=== PATIENT | male | born 1965 | race Caucasian/White ===

== ENCOUNTER 2021-08-11 08:40 | Outpatient (CLI) | payer MEDICARE, SELFPAY ==
--- NOTE | ~2021-08-11 | CT_ITS ---
EXAMINATION: CT abdomen pelvis w con INDICATION: Lower abdominal cramping, history of ulcerative colitis TECHNIQUE: Computed tomographic images of the abdomen and pelvis were obtained after the administrati on of 100 cc of Omnipaque 300 intravenous contrast. The dose-length product (DLP) was 1656.74 mGy-cm. Automated exposure control and iterative reconstruction technique were employed. COMPARISON: None available FINDINGS: Minimal dependent atelectasis is present in the lung bases. The heart size is normal. There is a 1.8 x 1.0 cm hypervascular lesion in liver segment IVb. There is focal fatty infiltration of th e liver near the ligamentum teres. The spleen, pancreas, gallbladder, and adrenal glands are normal. The kidneys are unremarkable. No pathologically enlarged abdominal or pelvic lymph nodes are identifi ed. There is no free intraperitoneal gas or evidence of bowel obstruction. There is circumferential w all thickening of the sigmoid colon. There is a small fat-containing umbilical hernia. There is moder ate lumbar spondylosis. 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 IMPRESSION: 1. Circumferential wall thickening of the sigmoid colon, consistent with patient's history of ulcerat abbie colitis. 2. Hypervascular region of the left hepatic lobe, likely focal nodular hyperplasia or flash filling h emangioma in the absence of known malignancy. Comparison with prior imaging or further evaluation by MRI without and with contrast is recommended. Reviewed, dictated and finalized at location A. IMPRESSION: 1. Circumferential wall thickening of the sigmoid colon, consistent with patien t's history of ulcerative colitis. 2. Hypervascular region of the left hepatic lobe, likely focal nodular hyperpla kimberly or flash filling hemangioma in the absence of known malignancy. Comparison with prior imaging or further evaluation by MRI without and with contrast is re commended.
[2021-08-11 09:10] LABS: Hemoglobin 16.4 g/dL (14.0-18.0); Mean Corpuscular HGB Conc 32.2 g/dL (32.0-36.0); Mean Corpuscular Hemoglobin 31.9 pg (27.0-31.0); Mean Corpuscular Volume 99.2 fL (78.0-102.0); Mean Platelet Volume 9.1 fl (8.7-11.0); Platelet Count Result 367 K/mm3 (150-420); Red Blood Count 5.14 M/mm3 (4.70-6.10); Red Cell Distribution Width 13.7 % (11.6-14.4); White Blood Count 8.2 K/mm3 (4.8-10.8)
[2021-08-11 09:30] LABS: Alanine Aminotransferase 16 U/L (16-63); Albumin Level 3.2 g/dL (3.4-5.0); Alkaline Phosphatase 125 U/L (46-116); Anion Gap 7 mmol/L (8-16); Aspartate Amino Transferase 16 U/L (15-37); Bilirubin,Total 0.4 mg/dL (0.00-1.00); Calcium 8.9 mg/dL (8.5-10.1); Carbon Dioxide 33 mmol/L (21-32); Chloride 99 mmol/L (98-108); Estimated Glomerular Filt Rate > 60; Glucose 115 mg/dL (70-99); Potassium 3.9 mmol/L (3.5-5.1); Sodium 139 mmol/L (136-145); Total Protein 7.5 g/dL (6.4-8.2)
[2021-08-11 09:36] LABS: Blood Urea Nitrogen 15 mg/dL (7-18); Osmolality Calculated 289 mOsm/kg (285-295)
[2021-08-11 10:17] LABS: Band Neutrophils Percent 2 % (0-6); Eosinophils Absolute Manual 0.98 K/mm3 (0.02-0.5); Eosinophils Percent Manual 12 % (1-6); Lymphocytes Absolute Manual 4.01 K/mm3 (1.1-4.5); Lymphocytes Percent Manual 49 % (18-44); Monocytes Absolute Manual 0.32 K/mm3 (0.1-0.90); Monocytes Percent Manual 4 % (3-9); Neutrophils Absolute Manual 2.87 K/mm3 (1.3-6.7); Neutrophils Percent Manual 33 % (46-73); Platelet Estimate Adequate (Adequate); Total Cells Counted 100
[2021-08-11 13:14] LABS: CRP 1.5 mg/dL (0.0-0.9)
== END 2021-08-11 08:41 | disposition home or self-care (01) ==
PROVIDERS: PCP Family Medicine
DX: K51.90 Ulcerative colitis, unspecified, without complications (principal); R10.30 Lower abdominal pain, unspecified
CPT/HCPCS: 36415; 74177; 80053; 85025; 86140; Q9967

== ENCOUNTER 2022-01-03 10:36 | Outpatient (CLI) | payer MEDICARE, SELFPAY | END 2022-01-03 10:37 | disposition home or self-care (01) | LOC: CHSIMG 10:39 | PROVIDERS: PCP Family Medicine | DX: R93.5 Abnormal findings on diagnostic imaging of other abdominal regions, including retroperitoneum (principal); Z53.8 Procedure and treatment not carried out for other reasons | CPT/HCPCS: 99199 ==